=== PATIENT | male | born 1965 | race American Indian/Alaskan Native ===

== ENCOUNTER 2020-03-27 18:44 | Emergency (ER) | payer OTHER ==
[~2020-03-27] VITALS: Ht 185.4 cm; Wt 115.7 kg
[2020-03-27 20:30] VITALS: BP 151/99
== END 2020-03-27 20:30 | disposition short-term general hospital (02) ==
LOC: M.ERS 18:44
DX: T22.231A Burn of second degree of right upper arm, initial encounter (principal); X08.8XXA Exposure to other specified smoke, fire and flames, initial encounter; Y93.89 Activity, other specified; Y92.89 Other specified places as the place of occurrence of the external cause; Y99.8 Other external cause status